=== PATIENT | male | born 1995 | race Asian ===

== ENCOUNTER 2024-07-07 20:11 | Emergency (ER) | payer OTHER, SELFPAY ==
[~2024-07-07] VITALS: Ht 180.3 cm; Wt 112.3 kg
[2024-07-07 23:30] VITALS: BP 131/82; TEMP 97.8; O2SAT 97
== END 2024-07-08 01:00 | disposition home or self-care (01) ==
LOC: M ED 20:11
DX: S63.92XA Sprain of unspecified part of left wrist and hand, initial encounter (principal); X50.3XXA Overexertion from repetitive movements, initial encounter; Y92.9 Unspecified place or not applicable; Y93.9 Activity, unspecified; Y99.9 Unspecified external cause status